=== PATIENT | male | born 1955 | race Caucasian/White ===

== ENCOUNTER 2020-04-09 05:57 | Day surgery (SDC) | payer OTHER ==
--- NOTE | 2020-01-22 09:29 | HP ---
DATE OF ADMISSION: 01/30/2020 BRIEF HISTORY: This is a 64-year-old gentleman who I initially met in July of 2019 for a right inguinal hernia. Patient was scheduled to undergo repair, but due to the COVID pandemic, surgery was postponed. He now presents to be reevaluated and scheduled for surgery. He has no new complaints. He has had a right inguinal hernia that has gotten much larger, and he has discomfort and heaviness. He wished to have this hernia repaired. Additional complaint for this evaluation and during this history: Patient states several weeks ago he had hemorrhoidal disease in August of this year and it resolved, and he was fine until several weeks ago when he noted a lump in his anus and the lump did not go away, and there was severe pain associated with this lump, followed by bleeding. Once it bled, the pain had improved, and now he has occasional bleeding. He has not had a colonoscopy in the past 5 years (patient not sure whether he did or did not). PAST MEDICAL HISTORY: Significant for peptic ulcer disease, coronary artery disease, and salivary gland tumor and various skin issues. PAST SURGICAL HISTORY: Removal of the salivary gland and varicose vein surgery. ALLERGIES: PENICILLIN. MEDICATIONS: Baby aspirin and eczema cream. SOCIAL HISTORY: Does not smoke, does not drink. No history of drug use. PHYSICAL EXAMINATION: Soft, nontender, nondistended. He has a large right inguinal hernia. The hernia is partially reducible. The right scrotum and testicle are within normal limits. There is no obvious defect in the left groin. Laxity is clearly noted. A small hernia cannot be ruled out. Anal exam: Patient was examined externally in the left lateral decubitus position. Anoscopy not performed due to a thrombosed hemorrhoid that is partially drained. There is no perirectal abscess. There is no tenderness at this point. IMPRESSION/PLAN: Chronically incarcerated right inguinal hernia, left floor laxity, partially drained thrombosed hemorrhoid. This is a 64-year-old gentleman who is symptomatic from an enlarging right inguinal hernia. At this point I was unable to reduce part of the hernia; however, he is not symptomatic with acute pain at this time. I would recommend proceeding with a laparoscopic right inguinal hernia repair, and at the time of laparoscopy, the left side should be examined, and if occult hernia is identified, it will be repaired in the same setting. If no hernia is seen, a piece of mesh will be left in the direct inguinal space for reinforcement. The indications, alternatives, and complications of the procedures have been discussed. Questions have been answered. Will plan to obtain written consent the day of surgery. With regard to the thrombosed hemorrhoid that is partially drained, it appears to me that the body had tried to fix this on its own several weeks ago with spontaneous drainage, and at this point there is no tenderness nor active infection, and I gave the patient an option of me incising it and doing a complete surgical drainage versus letting nature take care of this over the next several weeks. The patient has opted to undergo medical management, did not wish to have this drained at this time since he is asymptomatic, and therefore I have recommended sitz baths, external [id number] hemorrhoidal creams as needed, and this can be followed on a p.r.n. basis. Since the patient is not sure he had a colonoscopy within the past 5 years, I have asked that he follow up with his primary care physician and undergo a GI evaluation; as well, if he did not get scoped in the past 5 years to undergo a colonoscopy by his mail teller. This will be handled by his primary care physician and I will not be involved. Patient understands this very clearly, and I will only see him on a p.r.n. basis regarding the thrombosed hemorrhoid. WES FLORIAN M.D. [id number]
[2020-04-07 11:22] VITALS: BMI 28.3
--- OUTSIDE RECORDS SUMMARY | 2020-04-09 06:00 | XMS ---
:1955 Author Organization [facility] Support Name Relationship Address Phone [facility] [place] [address] [address] [facility] [address] Re-disclosure Warning The records that you are about to access may contain information from federally- assisted alcohol or drug abuse programs. If such information is present, then the following federally mandated warning applies: This information has been disclosed to you from records protected by federal confidentiality rules (42 CFR part 2). The federal rules prohibit you from making any further disclosure of this information unless further disclosure is expressly permitted by the written consent of the person to whom it pertains or as otherwise permitted by 42 CFR part 2. A general authorization for the release of medical or other information is NOT sufficient for this purpose. The Federal rules restrict any use of the information to criminally investigate or prosecute any alcohol or drug abuse patient.The records that you are about to access may contain highly sensitive health information, the redisclosure of which is protected by Article 27-F of the [facility] Public Health law. If you continue you may haveaccess to information: Regarding HIV / AIDS; Provided by facilities licensed or operated by the [facility] Office of Mental Health; or Provided by the [facility] Office for People With Developmental Disabilities. If such information is present, then the following [facility] mandated warning applies: This information has been disclosed to you from confidential records which are protected by state law. State law prohibits you from making any further disclosure of this information without the specific written consent of the person to whom it pertains, or as otherwise permitted by law. Any unauthorized further disclosure in violation of state law may result in a fine or usp sentence or both. A general authorization for the release of medical or other information is NOT sufficient authorization for further disclosure. Insurance Providers Payer name Policy type Policy ID Covered Covered constitution party's Policy P connor / Coverage constitution party ID relationship to [facility] [employer] type [employer] [place] [id number] S [id number] HEALTH CARE HMO/POS/EPO Results ID Date Data Source [id number] 04/04/2020 10:24:00 AM EDT [facility] Name Value Range Interpretation Description Data Sup porting Code Source(s) Document(s ) SARS [facility] coronavirus 2 RNA This lab was ordered by ANNE [facility] and reported by [facility]. ID Date Data Source [id number] 01/21/2020 01:25:00 AM EDT [facility] Name Value Range Interpretation Description Data Sup porting Code Source(s) Document(s ) 2018 Novel [facility] Coronavirus RNA Interpretation Unspecified Specimen Qualitative HIRAM Probe Detection This lab was ordered by [facility] and reported by [facility]. ID Date Data Source [id number] 01/04/2020 01:16:00 AM EDT [facility] Name Value Range Interpretation Description Data Sup porting Code Source(s) Document(s ) 2018 Novel [facility] Coronavirus RNA Interpretation Unspecified Specimen Qualitative HIRAM Probe Detection This lab was ordered by [facility] and reported by [facility]. ID Date Data Source [id number] 01/01/2020 10:25:00 PM EDT [facility] Name Value Range Interpretation Description Data Sup porting Code Source(s) Document(s ) 2018 Novel [facility] Coronavirus RNA Interpretation Unspecified Specimen Qualitative HIRAM Probe Detection This lab was ordered by [facility] and reported by [facility]. ID Date Data Source [id number] 12/27/2019 02:26:00 AM EDT [facility] Name Value Range Interpretation Description Data Sup porting Code Source(s) Document(s ) 2018 Novel [facility] Coronavirus RNA Interpretation Unspecified Specimen Qualitative HIRAM Probe Detection This lab was ordered by [facility] and reported by [facility]. ID Date Data Source [id number] 12/24/2019 03:29:00 PM EDT [facility] Name Value Range Interpretation Description Data Sup porting Code Source(s) Document(s ) 2018 Novel [facility] Coronavirus RNA Interpretation Unspecified Specimen Qualitative HIRAM Probe Detection This lab was ordered by [facility] and reported by [facility]. ID Date Data Source [id number] 12/21/2019 10:05:00 PM EDT [facility] Name Value Range Interpretation Description Data Sup porting Code Source(s) Document(s ) 2018 Novel [facility] Coronavirus RNA Interpretation Unspecified Specimen Qualitative HIRAM Probe Detection This lab was ordered by [facility] and reported by [facility]. ID Date Data Source [id number] 12/18/2019 11:48:00 PM EDT [facility] Name Value Range Interpretation Description Data Sup porting Code Source(s) Document(s ) 2018 Novel [facility] Coronavirus RNA Interpretation Unspecified Specimen Qualitative HIRAM Probe Detection This lab was ordered by [facility] and reported by [facility]. ID Date Data Source [id number] 12/13/2019 04:40:00 PM EDT [facility] Name Value Range Interpretation Description Data Sup porting Code Source(s) Document(s ) 2018 Novel [facility] Coronavirus RNA Interpretation Unspecified Specimen Qualitative HIRAM Probe Detection This lab was ordered by [facility] and reported by [facility]. ID Date Data Source [id number] 12/11/2019 11:28:00 AM EDT [facility] Name Value Range Interpretation Description Data Sup porting Code Source(s) Document(s ) 2018 Novel [facility] Coronavirus RNA Interpretation Unspecified Specimen Qualitative HIRAM Probe Detection This lab was ordered by [facility] and reported by [facility]. ID Date Data Source [id number] 12/07/2019 12:00:00 AM EDT [facility] Name Value Range Interpretation Code Description Data Oxana rce(s) Supporting Document(s ) 2019-nCoV [facility] RNA XXX HIRAM+probe- Imp This lab was ordered by [facility] and re ported by [facility]. ID Date Data Source [id number] 12/04/2019 12:04:00 AM EDT [facility] Name Value Range Interpretation Description Data Sup porting Code Source(s) Document(s ) 2019 Novel [facility] Coronavirus RNA Interpretation Unspecified Specimen Qualitative HIRAM Probe Detection This lab was ordered by [facility] and reported by [facility]. ID Date Data Source [id number] 11/29/2019 01:33:00 AM EDT [facility] Name Value Range Interpretation Description Data Sup porting Code Source(s) Document(s ) 2019 Novel [facility] Coronavirus RNA Interpretation Unspecified Specimen Qualitative HIRAM Probe Detection This lab was ordered by [facility] and reported by [facility]. Procedure
[2020-04-09] MEDS ORDERED: TAMSULOSIN HCL 0.4 MG CAP ONE (06:48)
[2020-04-09] MEDS ORDERED: PROPOFOL 20 ML ONE ×2 (07:06→09:19)
[2020-04-09] MEDS ORDERED: fentaNYL CITRATE 250 MCG/5 ML VIAL ONE (07:06)
[2020-04-09] MEDS ORDERED: LIDOCAINE HCL/PF 2% SDV 5ML VIAL ONE (07:06)
[2020-04-09] MEDS ORDERED: DEXAMETHASONE SOD PHOSPHATE 4 MG/1 ML VIAL ONE ×2 (07:06→07:37)
[2020-04-09] MEDS ORDERED: ONDANSETRON 4 MG/2 ML VIAL ONE ×2 (07:06→07:37)
[2020-04-09] MEDS ORDERED: ROCURONIUM BROMIDE 50 MG/5 ML SYRINGE ONE (07:06)
[2020-04-09] MEDS ORDERED: SUCCINYLCHOLINE CHLORIDE 200 MG/10 ML SYRINGE ONE (07:06)
[2020-04-09] MEDS ORDERED: MIDAZOLAM HCL 2 MG/2 ML SINGLE DOSE VIAL ONE (07:37)
[2020-04-09] MEDS ORDERED: ROPIVACAINE HCL 0.5% 30ML VIAL ONE (07:37)
[2020-04-09] MEDS ORDERED: LOCK ITEM NR ONE (08:09)
[2020-04-09] MEDS ORDERED: ceFAZolin SODIUM 1 GM VIAL ONE (08:20)
[2020-04-09] MEDS ORDERED: ONDANSETRON 4 MG/2 ML VIAL IVPUSH PRN (08:27)
[2020-04-09] MEDS ORDERED: oxyCODONE HCL 5 MG TABLET PO PRN ×2 (08:27)
[2020-04-09] MEDS ORDERED: LACTATED RINGERS SOLUTION 1,000 ML IV SCH (08:30)
[2020-04-09] MEDS ORDERED: NEOSTIGMINE METHYLSULFATE 0.5 MG/ML - 10 ML MDV ONE (09:12)
[2020-04-09] MEDS ORDERED: GLYCOPYRROLATE 0.2 MG/1 ML VIAL ONE (09:13)
[2020-04-09] MEDS ORDERED: oxyCODONE HCL 5 MG TABLET ONE (10:33)
[2020-04-09 10:55] VITALS: TEMP 97.7
[2020-04-09 13:03] VITALS: BP 130/81; PULSE 62
--- NOTE | 2020-04-09 15:07 | OP ---
DATE OF OPERATION: 04/09/2020 PREOPERATIVE DIAGNOSIS: Chronically incarcerated right inguinal hernia. POSTOPERATIVE DIAGNOSIS: Chronically incarcerated direct right inguinal hernia; indirect component was not incarcerated; chronically incarcerated right femoral hernia and a left indirect inguinal hernia with attenuated direct space. PROCEDURE: Laparoscopic repair of incarcerated right inguinal hernia with mesh; laparoscopic repair of incarcerated right femoral hernia with mesh; laparoscopic repair of left inguinal hernia with mesh. SURGEON: Anthony Doe MD ANIMAL BEHAVIOURIST: Michael Capellan DO ANESTHESIA: Mo Connor MD (general). ESTIMATED BLOOD LOSS: Minimal. SPECIMEN: None. INDICATION FOR PROCEDURE: This is a 65-year-old gentleman with a more symptomatic right inguinal hernia that he has had for many years. He wishes to have this repaired. PROCEDURE IN DETAIL: Patient identified and appropriately positioned on the operating table. After placement of placement of general anesthesia, the abdomen prepped and draped in the usual sterile fashion with ChloraPrep. An infraumbilical incision was made, deepened through the subcutaneous tissue. The fascia of the rectus muscle on the right identified, divided sharply, the muscle split under direct vision with dissector balloon followed by a structural balloon placed. Also under direct vision a suprapubic 11-mm port placed. The following structures on the right side identified: Pubic tubercle, Guilherme's ligament, inferior epigastric vessels, spermatic cord and lateral abdominal wall. During this dissection the patient was noted to have an incarcerated direct inguinal hernia. The incarcerated contents were reduced in the preperitoneal space with blunt dissection. He also had an incarcerated femoral hernia noted. This contained fat. This was reduced back in the preperitoneal space as well. The patient had a very large indirect inguinal hernia sac and a large cord lipoma. A peritoneotomy was noted to be in the sac secondary to the dissector balloon. The peritoneotomy was closed with the [place] Surgical clip clinical nurse specialist. The peritoneum and sac reduced off the cord structures with blunt and sharp dissection. A 5.5 x 6 piece of Versatex mesh was keyholed, placed through the superior port site. The mesh was wrapped around the cord structures laterally to reconstruct the internal ring. Laterally the mesh was anchored to the anterior abdominal wall and lateral abdominal wall. Medially the mesh was anchored to the anterior abdominal wall, pubic tubercle and Guilherme's ligament. Upon placement of the medial portion of the mesh it covered the femoral defect as well. It covered the direct space well also. Upon completion of the right side, similar structures on the left side identified. He had no direct component, but he had marked attenuation of the direct inguinal floor. He had a moderate size indirect inguinal hernia sac reduced back in the preperitoneal space. Again, the peritoneotomy was seen and closed with the [place] Surgical clip clinical nurse specialist. Another 5.5 x 6 piece of Versatex mesh was keyholed, placed through the superior port site. The mesh was wrapped around the cord structures laterally to reconstruct the internal ring. Laterally the mesh was anchored to the anterior abdominal wall and lateral abdominal wall. Medially the mesh well overlapped in the midline, anchored to the anterior abdominal wall, pubic tubercle and Guilherme's ligament. The preperitoneal space desufflated under direct vision. The operative field was noted to be hemostatic. The fascia at the supraumbilical and infraumbilical port site reapproximated with interrupted 0 Vicryl suture. All skin closed with 4-0 subcuticular Biosyn followed by Dermabond. At the conclusion of this case, sponge count was correct. ATTESTATION: Brief op note handwritten on the preprinted form. [facility] queried prior to giving narcotics. Noah CHATMAN [id number] cc: MD Nadya Vee MD
== END 2020-04-09 12:45 | disposition home or self-care (01) ==
LOC: FASU 05:57
PROVIDERS: ATTEND Surgery
PROC: 0YU70JZ Supplement Right Femoral Region with Synthetic Substitute, Open Approach (ICD-10-PCS; 2020-04-09)
PROC: 0YJ74ZZ Inspection of Right Femoral Region, Percutaneous Endoscopic Approach (ICD-10-PCS; 2020-04-09)
PROC: 0YUA4JZ Supplement Bilateral Inguinal Region with Synthetic Substitute, Percutaneous Endoscopic Approach (ICD-10-PCS; principal; 2020-04-09 08:27)
DX: K40.30 Unilateral inguinal hernia, with obstruction, without gangrene, not specified as recurrent (principal); K40.90 Unilateral inguinal hernia, without obstruction or gangrene, not specified as recurrent; K41.30 Unilateral femoral hernia, with obstruction, without gangrene, not specified as recurrent
CPT/HCPCS: 94760